=== PATIENT | female | born 1970 | race Caucasian/White ===

== ENCOUNTER 2019-12-10 10:53 | Observation (INO) ==
[2019-12-10] MEDS ORDERED: Ondansetron 4 mg VIAL 2 MG/ML 2 ml VIAL ONE (11:25)
[2019-12-10] MEDS ORDERED: Nitro 2% OINT (Nitroglycerin) 1 INCH/PAK ONE (11:25)
[2019-12-10] MEDS ORDERED: oxyCODONE SR 10 mg TAB (*) ONE (11:26)
[2019-12-10] MEDS ORDERED: LORazepam 1 mg TAB (*) ONE (11:26)
[2019-12-10 11:29] LABS: Hematocrit 31 % (35-47); Hemoglobin 9.4 g/dL (12.0-16.0); Mean Corpuscular HGB Conc 31 g/dL (31-36); Mean Corpuscular Hemoglobin 21 pg (27-31); Mean Corpuscular Volume 68 fL (80-97); Mean Platelet Volume 8.3 fL (7.4-10.4); Platelet Count 254 10^3/uL (150-450); Red Blood Count 4.53 10^6 /uL (3.70-4.87); Red Cell Distribution Width 26 % (10-15); White Blood Count 8.4 10^3/uL (3.5-10.8)
[2019-12-10 11:34] LABS: Activated Partial Thrombo Time 32.1 seconds (26.0-38.0); INR 0.98 (0.82-1.09)
[2019-12-10] MEDS ORDERED: Clindamycin 900 MG/D5W BAG(*) 900 MG/50 ML BAG IVPB ONE (12:00)
[2019-12-10] MEDS ORDERED: HYDROmorphone PCA 1 MG/ML Titrat per Protocol PCA SCH (12:00)
[2019-12-10 12:10] LABS: ABS Basophils 0.1 10^3/ul (0-0.2); ABS Eosinophils 0.4 10^3/ul (0-0.6); ABS Lymphocytes 1.7 10^3/ul (1.0-4.8); ABS Monocytes 0.6 10^3/ul (0-0.8); Eosinophil % 4.4 %; Lymphocyte % 20.6 %; Microcytosis 3+; Nucleated Red Blood Cells % 0.1; Polychromasia 2+
[2019-12-10] MEDS ORDERED: Heparin 2 UNITS/ML 1000 mls 2,000 ML IV ONE (12:12)
[2019-12-10] MEDS ORDERED: Lidocaine 1% VIAL 10 MG/ML VIAL ONE (12:12)
[2019-12-10] MEDS ORDERED: Iohexol 350 (CONTRAST) 200 ML MDV IV ONE ×3 (12:12→15:06)
[2019-12-10 12:23] LABS: HCG Pregnancy < 0.60 mIU/mL
[2019-12-10] MEDS ORDERED: fentaNYL 250 mcg/5 ml 50 MCG/ML 5 ml VIAL (250 MCG) ONE (12:31)
[2019-12-10] MEDS ORDERED: Midazolam 5 mg/5 ml VIAL 1 mg/ml 5 ml VIAL (5 mg) ONE (12:31)
[2019-12-10] MEDS ORDERED: nitroGLYCERIN DRIP 25,000 MCG/250 ML BTL ONE (12:31)
[2019-12-10 12:44] LABS: Anion Gap 11 mmol/L (2-11); BUN/Creatinine Ratio 13.4 (8-20); Blood Urea Nitrogen 9 mg/dL (6-24); CO2 Carbon Dioxide 23 mmol/L (22-32); Calcium 9.3 mg/dL (8.6-10.3); Chloride 105 mmol/L (101-111); EGFR African American 114.2 (>60); EGFR Non-African American 94.3 (>60); Glucose 96 mg/dL (70-100); Potassium 3.9 mmol/L (3.5-5.0); Sodium 139 mmol/L (135-145)
[2019-12-10] MEDS ORDERED: Heparin 1,000 UNIT/ML CATH LAB 1,000 10 ml (10,000 UNITS) IV ONE (12:54)
[2019-12-10] MEDS ORDERED: VERAPAMIL 2.5 MG/ML 2 ML VIAL ** 5 mg/2 ml ONE (12:54)
[2019-12-10] MEDS ORDERED: Prochlorperazine 5 mg/ml 2 ml VIAL (10 mg) ONE (15:34)
[2019-12-10] MEDS: NS 0.9% 1000 ml BAG 1,000 ML IV SCH ×2 (16:00→21:16)
[2019-12-10] MEDS ORDERED: hydrALAZINE 20 mg/ml 1 ML Vial IV IV SLOW PU PRN (18:06)
[2019-12-10] MEDS: Ondansetron 4 mg VIAL 2 MG/ML 2 ml VIAL IV SCH (21:17)
[2019-12-11] MEDS: NS 0.9% 1000 ml BAG 1,000 ML IV SCH (02:28)
[2019-12-11] MEDS: Ondansetron 4 mg VIAL 2 MG/ML 2 ml VIAL IV SCH (03:25)
[2019-12-11] MEDS ORDERED: HYDROcodone/ACETAMIN 5/325 mg TAB PO PRN (07:29)
[2019-12-11 07:31] VITALS: BP 134/63
[2019-12-11] MEDS ORDERED: CMCS: Ketorolac 10 mg TAB (NF) PO SCH (08:00)
[2019-12-11] MEDS ORDERED: NON FORMULARY MED (Norethindrone Acetate 5 MG) PO SCH (09:00)
== END 2019-12-11 13:20 | disposition home or self-care (01) ==
LOC: SSU 10:53 → CHICATH 10:53
PROVIDERS: ADMIT Internal Medicine; ATTEND Hospitalist

== ENCOUNTER 2022-08-22 09:36 | Inpatient (IN) ==
[2022-08-22] MEDS ORDERED: Albuterol/Ipratropium NEB.SOL (2.5/0.5 MG) 3 ML NEB.SOLN INH ONE (09:56)
[2022-08-22 10:28] LABS: ABS Basophils 0.1 10^3/ul (0-0.2); ABS Eosinophils 0.2 10^3/ul (0-0.6); ABS Neutrophils 10.7 10^3/ul (1.5-7.7); Eosinophil % 1.5 %; Hematocrit 32 % (35-47); Hemoglobin 10.5 g/dL (12.0-16.0); Lymphocyte % 14.5 %; Mean Corpuscular HGB Conc 33 g/dL (31-36); Mean Corpuscular Hemoglobin 25 pg (27-31); Mean Corpuscular Volume 77 fL (80-97); Mean Platelet Volume 8.2 fL (7.4-10.4); Nucleated Red Blood Cells % 0.3; Platelet Count 349 10^3/uL (150-450); Red Blood Count 4.19 10^6 /uL (3.70-4.87); Red Cell Distribution Width 17 % (10-15); White Blood Count 13.9 10^3/uL (3.5-10.8)
[2022-08-22 10:38] LABS: Activated Partial Thrombo Time 26.8 seconds (26.0-38.0); INR 1.15 (0.88-1.18)
[2022-08-22 10:49] LABS: High Sens Troponin Baseline 133 pg/mL (<15)
[2022-08-22] MEDS ORDERED: Furosemide 20 mg/2 ml IV VIAL IV SLOW PU ONE ×2 (10:55→15:00)
[2022-08-22 10:58] LABS: ALT 52 U/L (7-52); AST 68 U/L (13-39); Albumin 3.5 g/dL (3.2-5.2); Alkaline Phosphatase 101 U/L (35-149); Anion Gap 7 mmol/L (2-11); Blood Urea Nitrogen 34 mg/dL (6-24); C Reactive Protein 173.37 mg/L (<8.01); CO2 Carbon Dioxide 29 mmol/L (22-32); Calcium 8.8 mg/dL (8.6-10.3); Chloride 97 mmol/L (101-111); Creatinine, Serum 1.28 mg/dL (0.51-0.95); Globulin 3.5 g/dL (2-4); Glucose 107 mg/dL (70-100); Potassium 4.5 mmol/L (3.5-5.0); Sodium 133 mmol/L (135-145)
[2022-08-22] MEDS ORDERED: Iodixanol (CONTRAST) 320 MG/ML 100 ML SDV IV ONE (11:50)
[2022-08-22 11:59] LABS: High Sensitivity Troponin 1 Hr 141 pg/mL (<15)
[2022-08-22] MEDS ORDERED: Polyethylene Glycol 3350 17 GM PACKET PO PRN (13:24)
[2022-08-22] MEDS ORDERED: Albuterol/Ipratropium NEB.SOL (2.5/0.5 MG) 3 ML NEB.SOLN INH PRN (13:30)
[2022-08-22 13:59] LABS: Magnesium 1.9 mg/dL (1.9-2.7); Total Iron Binding Capacity 410 mcg/dL (250-450); Transferrin 293 mg/dL (203-362)
[2022-08-22] MEDS ORDERED: Piperacillin/Tazobac ADVAN 3.375 GM in NS 0.9% 100 ml BAG 100 ML IV ONE (14:00)
[2022-08-22] MEDS ORDERED: Zosyn per Pharmacy NOTE FOLLOW UP SCH (14:00)
[2022-08-22 14:01] LABS: % Iron Saturation 5 % (15-55); Iron < 20 ug/dL (50-212); Unsaturated Iron Binding 390 ug/dL
[2022-08-22 14:13] LABS: Ferritin 41.3 ng/mL (11-307)
[2022-08-22] MEDS: methylPREDNISolone SOD SUCC 40 mg/ml 1 ml VIAL IV SCH (16:20)
[2022-08-22] MEDS: Albuterol/Ipratropium NEB.SOL (2.5/0.5 MG) 3 ML NEB.SOLN INH SCH ×2 (16:31→19:28)
[2022-08-22] MEDS: ZOSYN 3.375 GM Q8H per EXTENDED INFUSION IV SCH (20:17)
[2022-08-22] MEDS: Enoxaparin 40 MG/0.4 ML SYR SUBCUT SCH (20:27)
[2022-08-23] MEDS: methylPREDNISolone SOD SUCC 40 mg/ml 1 ml VIAL IV SCH ×4 (00:34→22:04)
[2022-08-23] MEDS: Albuterol/Ipratropium NEB.SOL (2.5/0.5 MG) 3 ML NEB.SOLN INH SCH ×4 (00:48→19:39)
[2022-08-23] MEDS: ZOSYN 3.375 GM Q8H per EXTENDED INFUSION IV SCH ×3 (04:01→22:05)
[2022-08-23 06:17] LABS: ABS Eosinophils 0.1 10^3/ul (0-0.6); ABS Monocytes 0.4 10^3/ul (0-0.8); ABS Neutrophils 9.4 10^3/ul (1.5-7.7); Eosinophil % 0.7 %; Hematocrit 31 % (35-47); Lymphocyte % 9.3 %; Mean Corpuscular HGB Conc 32 g/dL (31-36); Mean Corpuscular Hemoglobin 25 pg (27-31); Mean Corpuscular Volume 77 fL (80-97); Mean Platelet Volume 8.1 fL (7.4-10.4); Nucleated Red Blood Cells % 0.1; Platelet Count 305 10^3/uL (150-450); Red Blood Count 4.05 10^6 /uL (3.70-4.87); Red Cell Distribution Width 17 % (10-15); White Blood Count 10.9 10^3/uL (3.5-10.8)
[2022-08-23 06:40] LABS: Albumin 3.6 g/dL (3.2-5.2); Albumin/Globulin Ratio 0.9 (1-3); C Reactive Protein 167.59 mg/L (<8.01); Calcium 8.6 mg/dL (8.6-10.3); Creatinine, Serum 0.77 mg/dL (0.51-0.95); Globulin 3.8 g/dL (2-4); Magnesium 2.3 mg/dL (1.9-2.7); Potassium 4.5 mmol/L (3.5-5.0); Total Bilirubin 0.5 mg/dL (0.2-1.0); Total Protein 7.4 g/dL (6.4-8.9); eGFR CKD-EPI 93.9 (>60)
[2022-08-23 08:09] LABS: Urine Appearance Turbid; Urine Bilirubin Negative (Negative); Urine Blood Negative (Negative); Urine Color Yellow; Urine Glucose Negative (Negative); Urine Ketones Negative (Negative); Urine Nitrite Negative (Negative); Urine Protein 1+(30 mg/dL) (Negative); Urine Specific Gravity 1.026 (1.002-1.030); Urine Urobilinogen Negative (Negative)
[2022-08-23 08:46] LABS: Urine Bacteria Absent (Absent); Urine Red Blood Cell Absent (Absent); Urine Squamous Epithelial Cell Present (Absent); Urine White Blood Cell Absent (Absent)
[2022-08-23] MEDS ORDERED: Albuterol/Ipratropium NEB.SOL (2.5/0.5 MG) 3 ML NEB.SOLN ONE (19:36)
[2022-08-23] MEDS ORDERED: Furosemide 20 mg/2 ml IV VIAL IV ONE (19:48)
[2022-08-23] MEDS: Enoxaparin 40 MG/0.4 ML SYR SUBCUT SCH (22:04)
[2022-08-24] MEDS: methylPREDNISolone SOD SUCC 40 mg/ml 1 ml VIAL IV SCH ×3 (05:21→20:45)
[2022-08-24] MEDS: ZOSYN 3.375 GM Q8H per EXTENDED INFUSION IV SCH ×3 (05:25→20:45)
[2022-08-24 06:40] LABS: Calcium 8.5 mg/dL (8.6-10.3); Creatinine, Serum 0.77 mg/dL (0.51-0.95); Potassium 4.5 mmol/L (3.5-5.0); eGFR CKD-EPI 93.9 (>60)
[2022-08-24] MEDS ORDERED: Albuterol/Ipratropium NEB.SOL (2.5/0.5 MG) 3 ML NEB.SOLN INH SCH ×2 (07:00→19:00)
[2022-08-24] MEDS ORDERED: Albuterol/Ipratropium NEB.SOL (2.5/0.5 MG) 3 ML NEB.SOLN INH PRN (07:01)
[2022-08-24 07:32] LABS: ABS Lymphocytes 0.9 10^3/ul (1.0-4.8); ABS Monocytes 0.6 10^3/ul (0-0.8); ABS Neutrophils 11.4 10^3/ul (1.5-7.7); Eosinophil % 0.1 %; Hematocrit 31 % (35-47); Hemoglobin 9.7 g/dL (12.0-16.0); Lymphocyte % 6.7 %; Mean Corpuscular HGB Conc 31 g/dL (31-36); Mean Corpuscular Hemoglobin 24 pg (27-31); Mean Corpuscular Volume 77 fL (80-97); Mean Platelet Volume 8.2 fL (7.4-10.4); Nucleated Red Blood Cells % 0.2; Platelet Count 332 10^3/uL (150-450); Red Blood Count 4.03 10^6 /uL (3.70-4.87); Red Cell Distribution Width 17 % (10-15); White Blood Count 12.8 10^3/uL (3.5-10.8)
[2022-08-24] MEDS ORDERED: Furosemide 40 mg/4 ml IV VIAL IV ONE (08:43)
[2022-08-24] MEDS: Enoxaparin 40 MG/0.4 ML SYR SUBCUT SCH (20:44)
[2022-08-25] MEDS: methylPREDNISolone SOD SUCC 40 mg/ml 1 ml VIAL IV SCH (04:41)
[2022-08-25] MEDS: ZOSYN 3.375 GM Q8H per EXTENDED INFUSION IV SCH ×2 (04:41→13:00)
[2022-08-25 16:00] VITALS: BP 138/74
== END 2022-08-25 15:43 | disposition home or self-care (01) | DRG 133 ==
LOC: ED 09:36 → SUATTDRO 12:59 → EDHOLD 12:59 → MEDTELE 15:59
PROVIDERS: ADMIT Internal Medicine; ATTEND Internal Medicine